=== PATIENT | male | born 1955 | race Caucasian/White ===

== ENCOUNTER 2021-12-04 11:44 | Emergency (ER) | payer MEDICARE, MEDICAID ==
[~2021-12-04] VITALS: Ht 167.6 cm; Wt 75.0 kg
[2021-12-04 11:50] VITALS: BP 180/114
[2021-12-04 12:54] LABS: CLARITY URINE CLEAR (CLEAR); COLOR URINE YELLOW (YELLOW); KETONES URINE NEGATIVE (NEGATIVE); LEUKOCYTE ESTERASE URINE NEGATIVE (NEGATIVE); NITRITE URINE NEGATIVE (NEGATIVE); OCCULT BLOOD URINE TRACE (NEGATIVE); PH URINE 7.5 (4.5-8.0); PROTEIN URINE NEGATIVE (NEGATIVE); SPECIFIC GRAVITY URINE 1.011 (1.005-1.030); UROBILINOGEN URINE 0.2 E.U./dL (0.2-1.0)
[2021-12-04 13:43] LABS: HEMATOCRIT. 41.6 % (42.0-52.0); HEMOGLOBIN. 14.9 g/dL (14.0-18.0); MEAN CORPUSCULAR HEMOGLOBIN 30.3 pg (28.0-32.0); MEAN CORPUSCULAR VOLUME 84.7 fL (80.0-94.0); MEAN PLATELET VOLUME 9.1 fl (7.4-10.4); PLATELET 179 x1000/uL (130-400); RED BLOOD CELL COUNT 4.91 mill/uL (4.7-6.1); RED CELL DISTRIBUTION WIDTH 12.8 % (11.6-14.6)
[2021-12-04 13:50] LABS: CHLORIDE 106 mEq/L (98-107)
[2021-12-04 13:57] LABS: PLATELET ESTIMATE NORMAL
[2021-12-04] MEDS ORDERED: TAMS-11 MT (15:11)
== END 2021-12-04 15:29 | disposition home or self-care (01) ==
LOC: ER 11:44
DX: R33.9 Retention of urine, unspecified (principal)
CPT/HCPCS: 36415; 51702; 80053; 81003; 85025; 99284; A4315